=== PATIENT | female | born 1980 | race Caucasian/White ===

== ENCOUNTER → 2016-10-23 | Outpatient (REF) | payer BC | LOC: M SMT 12:53 | PROVIDERS: ATTEND Nurse Practitioner Women's Health | DX: N13.2 Hydronephrosis with renal and ureteral calculous obstruction (principal) ==

== ENCOUNTER → 2016-10-30 | Outpatient (REF) | payer BC | LOC: M SMT 12:47 | PROVIDERS: ATTEND Nurse Practitioner Women's Health | DX: N13.2 Hydronephrosis with renal and ureteral calculous obstruction (principal) ==

== ENCOUNTER → 2016-11-01 | Outpatient (CLI) | payer BC ==
--- NOTE | 2016-11-01 20:07 | REP ---
Clinical: Obstructing left ureteral calculus. Comparison: 10/15/2016. Findings: The previously identified mild hydroureteronephrosis and 4 mm obstructing mid/distal left ureteral calculus is no longer apparent and likely recently passed. 3 mm nonobstructing calculus within the left kidney is again identified. The right kidney and ureter and bladder are unremarkable. Liver, spleen, pancreas, gallbladder, and bilateral adrenal glands are normal for noncontrast examination. The enteric system is without obstruction or acute inflammatory process. The pelvis demonstrates normal collapsed bladder and age-appropriate uterus/adnexa previously noted 2.7 cm right ovarian cyst has resolved. No pelvic fluid or ascites. No free air. Abdominal aorta without aneurysm. Stable. Lung bases clear. Impression: 1. Resolution of the previously noted mild left-sided obstruction and passage of the 4 mm obstructing calculus. 2. The 3 mm nonobstructing left renal calculus is again identified within the left kidney. 3. Previously noted right ovarian cyst resolved. Signed by Luke Dye MD 11/01/2016 07:58 P
== END ==
LOC: M RAD 17:36
PROVIDERS: ATTEND Nurse Practitioner Women's Health
DX: N13.2 Hydronephrosis with renal and ureteral calculous obstruction (principal)

== ENCOUNTER 2020-05-21 12:35 | Emergency (ER) | payer BC, SELFPAY | END 2020-05-21 14:45 | disposition home or self-care (01) | LOC: M ED 12:35 | DX: S49.92XA Unspecified injury of left shoulder and upper arm, initial encounter (principal); V86.95XA Unspecified occupant of 3- or 4- wheeled all-terrain vehicle (ATV) injured in nontraffic accident, initial encounter; Y92.009 Unspecified place in unspecified non-institutional (private) residence as the place of occurrence of the external cause; Y93.9 Activity, unspecified; Y99.9 Unspecified external cause status; Z79.899 Other long term (current) drug therapy ==

== ENCOUNTER → 2023-01-31 | Outpatient (CLI) | payer BC, OTHER | LOC: M WHC 08:50 | PROVIDERS: ATTEND Physician Assistant | DX: Z12.31 Encounter for screening mammogram for malignant neoplasm of breast (principal) ==

== ENCOUNTER → 2023-09-02 | Outpatient (REF) | payer BC | LOC: M LAB REF 21:11 | PROVIDERS: ATTEND Physician Assistant Medical | DX: B34.9 Viral infection, unspecified (principal) ==

== ENCOUNTER → 2024-06-11 | Outpatient (REF) | payer BC ==
[2024-06-11 13:03] LABS: C REACTIVE PROTEIN QUANTITATIV < 0.40 MG/DL (<1.0)
[2024-06-11 13:05] LABS: PHOSPHORUS LEVEL 3.5 MG/DL (2.5-4.9)
[2024-06-11 13:06] LABS: THYROXINE (T4) 7.2 UG/DL (4.5-10.9)
== END ==
LOC: M LAB REF 12:07
PROVIDERS: ATTEND Nurse Practitioner Adult Health
DX: E66.8 Other obesity (principal)

== ENCOUNTER → 2024-07-09 | Outpatient (REF) | payer BC ==
[2024-07-09 13:36] LABS: FREE T3 3.1 PG/ML (2.3-4.2)
[2024-07-12 13:07] LABS: THRYOGLOBULIN ANTIBODIES (ATA) < 1 IU/mL (< or = 1); THYROGLOBULIN QUANTITATIVE 37.2 ng/mL (2.8-40.9)
== END ==
LOC: M LAB REF 12:58
PROVIDERS: ATTEND Nurse Practitioner Adult Health
DX: R74.8 Abnormal levels of other serum enzymes (principal)

== ENCOUNTER → 2024-07-15 | Outpatient (REF) | payer BC | LOC: M LAB REF 16:26 | PROVIDERS: ATTEND Nurse Practitioner Adult Health | DX: Z91.190 Patient's noncompliance with other medical treatment and regimen due to financial hardship (principal) ==

== ENCOUNTER → 2024-09-06 | Outpatient (CLI) | payer BC | LOC: M WHC 07:31 | PROVIDERS: ATTEND Nurse Practitioner Adult Health | DX: Z12.31 Encounter for screening mammogram for malignant neoplasm of breast (principal); R92.333 Mammographic heterogeneous density, bilateral breasts; R92.1 Mammographic calcification found on diagnostic imaging of breast; R92.8 Other abnormal and inconclusive findings on diagnostic imaging of breast ==

== ENCOUNTER → 2024-10-19 | Outpatient (CLI) | payer BC | LOC: M WHC 11:03 | PROVIDERS: ATTEND Nurse Practitioner Adult Health | DX: R92.8 Other abnormal and inconclusive findings on diagnostic imaging of breast (principal); R92.2 Inconclusive mammogram; R92.30 Dense breasts, unspecified; R92.1 Mammographic calcification found on diagnostic imaging of breast | CPT/HCPCS: 77065; G0279 ==

== ENCOUNTER → 2024-11-18 | Outpatient (CLI) | payer BC ==
[2024-11-18 07:46] VITALS: TEMP 98.2
[2024-11-18 09:15] VITALS: BP 116/82; O2SAT 99
== END ==
LOC: M WHCPRO 07:42
PROVIDERS: ATTEND Nurse Practitioner Adult Health
DX: R92.2 Inconclusive mammogram (principal); N63.25 Unspecified lump in the left breast, overlapping quadrants

== ENCOUNTER → 2025-01-17 | Outpatient (REF) | payer BC | LOC: M LAB REF 01-16 12:19 | PROVIDERS: ATTEND Nurse Practitioner Adult Health | DX: E03.9 Hypothyroidism, unspecified (principal) ==

== ENCOUNTER → 2025-05-16 | Outpatient (CLI) | payer BC | LOC: M WHC 10:30 | PROVIDERS: ATTEND Nurse Practitioner Adult Health | DX: R92.8 Other abnormal and inconclusive findings on diagnostic imaging of breast (principal); R92.343 Mammographic extreme density, bilateral breasts; R92.1 Mammographic calcification found on diagnostic imaging of breast ==